=== PATIENT | male | born 1945 | race Caucasian/White ===

== ENCOUNTER 2019-09-13 11:41 | Inpatient (IN) ==
[~2019-09-13 11:41] MED LIST: *HR* Amiodarone Premix 360 MG/200 ML BAG IVC ONE; *HR* Norepinephrine 4 MG/4 ML VIAL IVC ONE; Aminoglycoside Consult 1 EACH MC ONE; D5% in Water 250 ML IV BAG IV ONE
[2019-09-13] MEDS: Norepinephrine 4 MG in 0.9 % Sodium Chloride 250 ML IVC SCH ×2 (11:50→17:00)
[2019-09-13 12:11] LABS: ABG Base Excess -9 mEq/L (-2 to 3); ABG HCO3 16 mEq/L (21-27); ABG Oxygen Saturation 100 % (95-98); ABG PCO2 32 mmHg (35-45); ABG PH 7.32 pH Units (7.32-7.45); ABG PO2 222 mmHg (85-104); ABG TCO2 17 mEq/L (20-26); Blood Gas Modality VC; Blood Gas VT 450 cc
[2019-09-13 12:52] LABS: INR 3.9
[2019-09-13 12:53] LABS: Hematocrit 30.7 % (37.5-50.1); Hemoglobin 10.1 g/dL (12.9-16.9); Mean Corpuscular HGB Conc 32.9 g/dL (31.6-35.5); Mean Corpuscular Hemoglobin 31.4 pg (28.0-33.3); Mean Corpuscular Volume 95.3 fL (83.0-100.0); Mean Platelet Volume 9.4 fL (9.4-12.4); Platelet Count 309 K/mcL (140-400); Red Blood Count 3.22 M/mcL (4.19-5.50); Red Cell Distribution Width 15.3 % (11.5-14.5); White Blood Count 24.9 K/mcL (4.3-11.1)
[2019-09-13 12:55] LABS: Activated Partial Thrombo Time 32.4 Seconds (26.0-36.0)
[2019-09-13 12:57] LABS: Prothrombin Time 44.4 Seconds (9.4-12.1)
[2019-09-13] MEDS ORDERED: Piperacillin/Tazobactam 3.375 GM in 0.9 % Sodium Chloride Mini Bag 100 ML IVP ONE (13:01)
[2019-09-13] MEDS ORDERED: levoFLOXacin 750 MG/150 ML 750 MG/150 ML BAG IVPB ONE (13:02)
[2019-09-13 13:09] LABS: Albumin 3.1 g/dL (3.5-5.7); Albumin/Globulin Ratio 1.2 (1.1-2.2); Bilirubin,Direct 0.4 mg/dL (0.0-0.2); Bilirubin,Indirect 0.6 mg/dL (0.0-1.0); Globulin 2.6 g/dL (2.4-3.5); Total Protein 5.7 g/dL (6.4-8.9)
[2019-09-13] MEDS ORDERED: Piperacillin/Tazobactam 3.375 GM in 0.9 % Sodium Chloride Mini Bag 100 ML IVPB ONE (13:15)
[2019-09-13 13:16] LABS: Calcium 8.7 mg/dL (8.6-10.3); Monocytes # 0.5 K/mcL (0.0-1.3); Neutrophils # 23.4 K/mcL (1.6-8.9); Potassium 4.7 mEq/L (3.5-5.1); Troponin I 0.03 ng/mL (< 0.04)
[2019-09-13 13:17] LABS: Platelet Estimate Normal (Normal); Polychromasia 1+ (Not Present)
[2019-09-13] MEDS ORDERED: Amiodarone Premix 360 MG/200 ML BAG IVC ONE (14:10)
[2019-09-13 14:54] LABS: Magnesium 2.4 mg/dL (1.6-2.6)
[2019-09-13] MEDS ORDERED: Acetaminophen 325 MG TABLET PO PRN (15:16)
[2019-09-13] MEDS ORDERED: Artificial Tears SOLN 15 ML BOTTLE BOTH EYES PRN (15:16)
[2019-09-13] MEDS ORDERED: Naloxone 0.4 MG/ML INJ IVP PRN (15:16)
[2019-09-13] MEDS ORDERED: D5% in Water 1,000 ML IVC PRN (15:30)
[2019-09-13] MEDS ORDERED: Dextrose Gel 15 GM/37.5 ML TUBE PO PRN ×2 (15:30)
[2019-09-13] MEDS ORDERED: Perflutren Lipid Microsphere 1.3 ML in 0.9 % Sodium Chloride 8.7 ML IVP ONE (17:03)
[2019-09-13] MEDS ORDERED: Perflutren Lipid Microsphere 2 ML VIAL ONE (17:14)
[2019-09-13] MEDS: Artificial Tears SOLN 15 ML BOTTLE BOTH EYES SCH ×2 (17:16→19:32)
[2019-09-13] MEDS: Insulin LISPRO 300 UNITS/3 ML VIAL SQ SCH (17:30)
[2019-09-13] MEDS: Amiodarone Premix 360 MG/200 ML BAG IVC SCH (17:36)
[2019-09-13 17:48] LABS: Estimated Average Glucose 180 mg/dl
[2019-09-13] MEDS ORDERED: Doxycycline 100 MG in 0.9 % Sodium Chloride Mini Bag 100 ML IVPB SCH (18:00)
[2019-09-13] MEDS: FentaNYL (PF) 1,000 MCG in 0.9 % Sodium Chloride 80 ML IVC SCH (18:01)
[2019-09-13] MEDS: 0.9 % Sodium Chloride 1,000 ML IVC SCH ×3 (18:14→20:33)
[2019-09-13 19:23] LABS: Bilirubin,Urine Negative (Negative); Blood,Urine Small (Negative); Clarity,Urine Turbid (Clear); Color,Urine Yellow (Yellow); Glucose,Urine (UA) 100 mg/dL (Normal); Ketones,Urine Negative (Negative); Leukocyte Esterase,Urine Negative (Negative); Nitrite,Urine Negative (Negative); Protein,Urine 30 mg/dL (Neg-Trace); Specific Gravity,Urine 1.021 (1.010-1.025); Urobilinogen,Urine Normal (Normal)
[2019-09-13 19:25] LABS: Bacteria,Urine None Seen per hpf (None-Few); RBC,Urine 0-3 per hpf (0-3); Squamous Epithelial Cell,Urine Many per lpf (None-Few); WBC,Urine 30-50 per hpf (0-3)
[2019-09-13] MEDS: Chlorhexidine Rinse 15 ML MOUTHWASH MM SCH (19:32)
[2019-09-13] MEDS: Insulin DETEMIR 100 UNIT/ML X5UNITS SQ SCH (19:32)
[2019-09-13 19:41] LABS: Uric Acid Crystals,Urine Present
[2019-09-13 19:42] LABS: Granular Casts,Urine Moderate per lpf (None Seen)
[2019-09-13] MEDS: Phenylephrine 10 MG in 0.9 % Sodium Chloride 250 ML IVC SCH (20:28)
[2019-09-13 21:25] LABS: Hemoglobin 9.1 g/dL (12.9-16.9)
[2019-09-13 22:19] LABS: INR 5.2; Prothrombin Time 58.8 Seconds (9.4-12.1)
[2019-09-14] MEDS: Artificial Tears SOLN 15 ML BOTTLE BOTH EYES SCH ×6 (00:09→20:43)
[2019-09-14] MEDS: Insulin LISPRO 300 UNITS/3 ML VIAL SQ SCH ×4 (00:10→20:40)
[2019-09-14] MEDS: Piperacillin/Tazobactam 3.375 GM in 0.9 % Sodium Chloride Mini Bag 100 ML IVPB SCH ×3 (00:13→16:21)
[2019-09-14] MEDS: Phenylephrine 10 MG in 0.9 % Sodium Chloride 250 ML IVC SCH ×2 (00:18→02:28)
[2019-09-14] MEDS: FentaNYL (PF) 1,000 MCG in 0.9 % Sodium Chloride 80 ML IVC SCH ×3 (02:27→23:15)
[2019-09-14 03:20] LABS: Adenovirus Not Detected (Not Detect); Bordetella Pertussis Not Detected (Not Detect); Chlamydophila pneumoniae Not Detected (Not Detect); Coronavirus 229E Not Detected (Not Detect); Coronavirus HKU1 Not Detected (Not Detect); Coronavirus NL63 Not Detected (Not Detect); Coronavirus OC43 Not Detected (Not Detect); Human Metapneumovirus Not Detected (Not Detect); Human Rhinovirus/Enterovirus Not Detected (Not Detect); Influenza A Subtype 2009 H1 Not Detected (Not Detect); Influenza A Untypeable Not Detected (Not Detect); Influenza B Not Detected (Not Detect); Mycoplasma pneumoniae Not Detected (Not Detect); Parainfluenza Virus 1 Not Detected (Not Detect); Parainfluenza Virus 2 Not Detected (Not Detect); Parainfluenza Virus 3 Not Detected (Not Detect); Parainfluenza Virus 4 Not Detected (Not Detect); Respiratory Syncytial Virus Not Detected (Not Detect)
[2019-09-14] MEDS: Phenylephrine 50 MG in 0.9 % Sodium Chloride 250 ML IVC SCH ×3 (04:07→20:40)
[2019-09-14 04:41] LABS: INR 4.2
[2019-09-14 04:47] LABS: ABG Base Excess -5 mEq/L (-2 to 3); ABG HCO3 21 mEq/L (21-27); ABG Oxygen Saturation 97 % (95-98); ABG PCO2 43 mmHg (35-45); ABG PO2 99 mmHg (85-104); ABG TCO2 22 mEq/L (20-26); Blood Gas Modality ASSIST CONTROL; Blood Gas VT 450 cc
[2019-09-14 04:49] LABS: Basophils % 0.2 %; Eosinophils % 0.4 %; Hematocrit 28.5 % (37.5-50.1); Hemoglobin 9.2 g/dL (12.9-16.9); Immature Granulocytes % 1.4 % (0-4); Lymphocytes # 0.9 K/mcL (0.6-4.6); Lymphocytes % 8.5 %; Mean Corpuscular HGB Conc 32.3 g/dL (31.6-35.5); Mean Corpuscular Hemoglobin 30.9 pg (28.0-33.3); Mean Corpuscular Volume 95.6 fL (83.0-100.0); Mean Platelet Volume 9.1 fL (9.4-12.4); Monocytes % 9.4 %; Neutrophils # 8.7 K/mcL (1.6-8.9); Platelet Count 310 K/mcL (140-400); Prothrombin Time 47.3 Seconds (9.4-12.1); Red Blood Count 2.98 M/mcL (4.19-5.50); Red Cell Distribution Width 15.5 % (11.5-14.5); Segmented Neutrophils % 80.1 %
[2019-09-14 04:53] LABS: White Blood Count 10.8 K/mcL (4.3-11.1)
[2019-09-14 05:03] LABS: Albumin 2.8 g/dL (3.5-5.7); Albumin/Globulin Ratio 1.1 (1.1-2.2); Bilirubin,Direct 0.3 mg/dL (0.0-0.2); Bilirubin,Indirect 0.5 mg/dL (0.0-1.0); Bilirubin,Total 0.8 mg/dL (0.3-1.0); Calcium 7.7 mg/dL (8.6-10.3); Globulin 2.5 g/dL (2.4-3.5); Magnesium 2.1 mg/dL (1.6-2.6); Phosphorous 4.6 mg/dL (2.7-4.5); Potassium 4.5 mEq/L (3.5-5.1); Total Protein 5.3 g/dL (6.4-8.9)
[2019-09-14] MEDS: Amiodarone Premix 360 MG/200 ML BAG IVC SCH ×2 (05:09→16:40)
[2019-09-14] MEDS: Doxycycline 100 MG in 0.9 % Sodium Chloride Mini Bag 100 ML IVPB SCH ×2 (05:24→16:26)
[2019-09-14] MEDS: Norepinephrine 4 MG in 0.9 % Sodium Chloride 250 ML IVC SCH ×2 (06:01→12:32)
[2019-09-14] MEDS: Pantoprazole 40 MG VIAL IVP SCH (08:44)
[2019-09-14] MEDS: Chlorhexidine Rinse 15 ML MOUTHWASH MM SCH ×2 (08:44→20:48)
[2019-09-14] MEDS ORDERED: Furosemide 20 MG/2 ML VIAL IVP SCH (09:00)
[2019-09-14] MEDS: Insulin DETEMIR 100 UNIT/ML X5UNITS SQ SCH ×2 (11:39→20:43)
[2019-09-14] MEDS: Aspirin 81 MG TAB.CHEW PO SCH (11:39)
[2019-09-14 16:17] LABS: Hematocrit 30.1 % (37.5-50.1)
[2019-09-14] MEDS: Norepinephrine 8 MG in 0.9 % Sodium Chloride 250 ML IVC SCH ×2 (16:37→23:15)
[2019-09-14] MEDS: *HR* Dextrose 50 % in Water (Syg) 50 ML SYRINGE IVP PRN (21:34)
[2019-09-14 22:20] LABS: Hematocrit 32.3 % (37.5-50.1); Hemoglobin 10.8 g/dL (12.9-16.9)
[2019-09-15] MEDS: Artificial Tears SOLN 15 ML BOTTLE BOTH EYES SCH ×6 (00:13→19:41)
[2019-09-15] MEDS: Insulin LISPRO 300 UNITS/3 ML VIAL SQ SCH ×4 (00:14→18:47)
[2019-09-15] MEDS: Piperacillin/Tazobactam 3.375 GM in 0.9 % Sodium Chloride Mini Bag 100 ML IVPB SCH ×3 (00:15→16:12)
[2019-09-15] MEDS ORDERED: Aminoglycoside Consult 1 EACH MC ONE (03:02)
[2019-09-15] MEDS: Phenylephrine 50 MG in 0.9 % Sodium Chloride 250 ML IVC SCH ×3 (03:27→20:30)
[2019-09-15] MEDS: Amiodarone Premix 360 MG/200 ML BAG IVC SCH ×2 (03:36→16:17)
[2019-09-15 04:24] LABS: ABG Base Excess -6 mEq/L (-2 to 3); ABG HCO3 20 mEq/L (21-27); ABG Oxygen Saturation 91 % (95-98); ABG PCO2 38 mmHg (35-45); ABG PH 7.32 pH Units (7.32-7.45); ABG PO2 66 mmHg (85-104); ABG TCO2 21 mEq/L (20-26); Blood Gas Modality ASSIST CONTROL; Blood Gas VT 500 cc
[2019-09-15 05:33] LABS: Basophils # 0.1 K/mcL (0.0-0.2); Basophils % 0.3 %; Eosinophils # 0.1 K/mcL (0.0-0.6); Eosinophils % 0.5 %; Hematocrit 32.2 % (37.5-50.1); Hemoglobin 10.7 g/dL (12.9-16.9); Immature Granulocytes % 0.8 % (0-4); Lymphocytes # 0.9 K/mcL (0.6-4.6); Lymphocytes % 5.5 %; Mean Corpuscular HGB Conc 33.2 g/dL (31.6-35.5); Mean Corpuscular Hemoglobin 31.5 pg (28.0-33.3); Mean Corpuscular Volume 94.7 fL (83.0-100.0); Mean Platelet Volume 8.9 fL (9.4-12.4); Monocytes # 1.1 K/mcL (0.0-1.3); Monocytes % 6.4 %; Neutrophils # 14.3 K/mcL (1.6-8.9); Platelet Count 315 K/mcL (140-400); Red Cell Distribution Width 15.9 % (11.5-14.5); Segmented Neutrophils % 86.5 %
[2019-09-15 05:41] LABS: White Blood Count 16.5 K/mcL (4.3-11.1)
[2019-09-15 05:52] LABS: Calcium 8.1 mg/dL (8.6-10.3); Potassium 4.3 mEq/L (3.5-5.1)
[2019-09-15] MEDS: *HR* Dextrose 50 % in Water (Syg) 50 ML SYRINGE IVP PRN (06:02)
[2019-09-15] MEDS: Norepinephrine 8 MG in 0.9 % Sodium Chloride 250 ML IVC SCH ×3 (06:02→19:29)
[2019-09-15] MEDS: Doxycycline 100 MG in 0.9 % Sodium Chloride Mini Bag 100 ML IVPB SCH ×2 (06:47→18:20)
[2019-09-15] MEDS: Insulin DETEMIR 100 UNIT/ML X5UNITS SQ SCH (08:11)
[2019-09-15] MEDS: Aspirin 81 MG TAB.CHEW PO SCH (08:15)
[2019-09-15] MEDS: Chlorhexidine Rinse 15 ML MOUTHWASH MM SCH ×2 (08:15→19:41)
[2019-09-15] MEDS: Pantoprazole 40 MG VIAL IVP SCH (08:15)
[2019-09-15 09:55] LABS: INR 2.3; Prothrombin Time 26.4 Seconds (9.4-12.1)
[2019-09-15 09:56] LABS: Hematocrit 31.9 % (37.5-50.1); Hemoglobin 10.4 g/dL (12.9-16.9)
[2019-09-15] MEDS: FentaNYL (PF) 1,000 MCG in 0.9 % Sodium Chloride 80 ML IVC SCH ×2 (10:03→19:28)
[2019-09-15] MEDS: *HR* Amiodarone 200 MG TABLET PO SCH ×2 (11:41→19:41)
[2019-09-16] MEDS: Piperacillin/Tazobactam 3.375 GM in 0.9 % Sodium Chloride Mini Bag 100 ML IVPB SCH ×3 (00:26→16:38)
[2019-09-16] MEDS: Artificial Tears SOLN 15 ML BOTTLE BOTH EYES SCH ×6 (00:27→20:31)
[2019-09-16] MEDS: Insulin LISPRO 300 UNITS/3 ML VIAL SQ SCH ×4 (00:27→18:47)
[2019-09-16] MEDS: Norepinephrine 8 MG in 0.9 % Sodium Chloride 250 ML IVC SCH ×2 (02:13→13:50)
[2019-09-16] MEDS: Amiodarone Premix 360 MG/200 ML BAG IVC SCH ×2 (03:46→16:00)
[2019-09-16 04:13] LABS: Basophils % 0.3 %; Eosinophils # 0.1 K/mcL (0.0-0.6); Eosinophils % 0.5 %; Hematocrit 31.1 % (37.5-50.1); Immature Granulocytes % 0.7 % (0-4); Lymphocytes # 0.8 K/mcL (0.6-4.6); Lymphocytes % 5.5 %; Mean Corpuscular HGB Conc 32.2 g/dL (31.6-35.5); Mean Corpuscular Hemoglobin 31.1 pg (28.0-33.3); Mean Corpuscular Volume 96.6 fL (83.0-100.0); Mean Platelet Volume 8.8 fL (9.4-12.4); Monocytes # 0.8 K/mcL (0.0-1.3); Monocytes % 5.5 %; Neutrophils # 12.3 K/mcL (1.6-8.9); Platelet Count 257 K/mcL (140-400); Red Blood Count 3.22 M/mcL (4.19-5.50); Red Cell Distribution Width 16.4 % (11.5-14.5); Segmented Neutrophils % 87.5 %; White Blood Count 14.1 K/mcL (4.3-11.1)
[2019-09-16 04:30] LABS: Calcium 7.9 mg/dL (8.6-10.3); Potassium 4.4 mEq/L (3.5-5.1)
[2019-09-16] MEDS: Doxycycline 100 MG in 0.9 % Sodium Chloride Mini Bag 100 ML IVPB SCH ×2 (05:13→16:39)
[2019-09-16] MEDS: FentaNYL (PF) 1,000 MCG in 0.9 % Sodium Chloride 80 ML IVC SCH ×2 (05:14→16:15)
[2019-09-16] MEDS: Phenylephrine 50 MG in 0.9 % Sodium Chloride 250 ML IVC SCH ×2 (05:59→20:30)
[2019-09-16 06:16] LABS: ABG Base Excess -8 mEq/L (-2 to 3); ABG HCO3 18 mEq/L (21-27); ABG Oxygen Saturation 85 % (95-98); ABG PCO2 36 mmHg (35-45); ABG PO2 55 mmHg (85-104); ABG TCO2 19 mEq/L (20-26); Blood Gas Modality ASSIST CONTROL; Blood Gas VT 500 cc
[2019-09-16] MEDS: Chlorhexidine Rinse 15 ML MOUTHWASH MM SCH ×2 (09:27→20:33)
[2019-09-16] MEDS: *HR* Amiodarone 200 MG TABLET PO SCH ×2 (09:27→20:33)
[2019-09-16] MEDS: Pantoprazole 40 MG VIAL IVP SCH (09:27)
[2019-09-16] MEDS: Aspirin 81 MG TAB.CHEW PO SCH (09:27)
[2019-09-16 10:23] LABS: INR 2.7; Prothrombin Time 30.9 Seconds (9.4-12.1)
[2019-09-17] MEDS: Insulin LISPRO 300 UNITS/3 ML VIAL SQ SCH ×4 (01:08→17:48)
[2019-09-17] MEDS: Piperacillin/Tazobactam 3.375 GM in 0.9 % Sodium Chloride Mini Bag 100 ML IVPB SCH ×3 (01:08→16:00)
[2019-09-17] MEDS: Artificial Tears SOLN 15 ML BOTTLE BOTH EYES SCH ×6 (01:09→20:08)
[2019-09-17] MEDS: Norepinephrine 8 MG in 0.9 % Sodium Chloride 250 ML IVC SCH ×2 (01:10→11:20)
[2019-09-17] MEDS: FentaNYL (PF) 1,000 MCG in 0.9 % Sodium Chloride 80 ML IVC SCH ×2 (02:11→20:16)
[2019-09-17 04:46] LABS: ABG Base Excess -5 mEq/L (-2 to 3); ABG HCO3 20 mEq/L (21-27); ABG Oxygen Saturation 98 % (95-98); ABG PCO2 37 mmHg (35-45); ABG PH 7.34 pH Units (7.32-7.45); ABG PO2 119 mmHg (85-104); ABG TCO2 21 mEq/L (20-26); Blood Gas Modality ASSIST CONTROL; Blood Gas VT 500 cc
[2019-09-17] MEDS: Doxycycline 100 MG in 0.9 % Sodium Chloride Mini Bag 100 ML IVPB SCH ×2 (04:56→17:45)
[2019-09-17] MEDS: Amiodarone Premix 360 MG/200 ML BAG IVC SCH (04:56)
[2019-09-17 04:59] LABS: Basophils % 0.2 %; Eosinophils # 0.1 K/mcL (0.0-0.6); Eosinophils % 0.6 %; Hematocrit 31.2 % (37.5-50.1); Immature Granulocytes % 0.9 % (0-4); Lymphocytes # 0.7 K/mcL (0.6-4.6); Lymphocytes % 5.5 %; Mean Corpuscular HGB Conc 32.1 g/dL (31.6-35.5); Mean Corpuscular Hemoglobin 30.7 pg (28.0-33.3); Mean Corpuscular Volume 95.7 fL (83.0-100.0); Mean Platelet Volume 8.5 fL (9.4-12.4); Monocytes # 0.7 K/mcL (0.0-1.3); Monocytes % 5.2 %; Neutrophils # 10.9 K/mcL (1.6-8.9); Platelet Count 237 K/mcL (140-400); Red Blood Count 3.26 M/mcL (4.19-5.50); Red Cell Distribution Width 16.6 % (11.5-14.5); Segmented Neutrophils % 87.6 %; White Blood Count 12.5 K/mcL (4.3-11.1)
[2019-09-17 05:03] LABS: INR 2.9; Prothrombin Time 32.5 Seconds (9.4-12.1)
[2019-09-17 05:18] LABS: Calcium 8.1 mg/dL (8.6-10.3); Potassium 4.3 mEq/L (3.5-5.1)
[2019-09-17] MEDS: Aspirin 81 MG TAB.CHEW PO SCH (08:12)
[2019-09-17] MEDS: *HR* Amiodarone 200 MG TABLET PO SCH ×2 (08:12→20:08)
[2019-09-17] MEDS: Pantoprazole 40 MG VIAL IVP SCH (08:12)
[2019-09-17] MEDS: Chlorhexidine Rinse 15 ML MOUTHWASH MM SCH ×2 (08:12→20:08)
[2019-09-18] MEDS ORDERED: Piperacillin/Tazobactam 3.375 GM in 0.9 % Sodium Chloride Mini Bag 100 ML IVPB SCH
[2019-09-18] MEDS: Insulin LISPRO 300 UNITS/3 ML VIAL SQ SCH ×4 (00:16→18:17)
[2019-09-18] MEDS: Artificial Tears SOLN 15 ML BOTTLE BOTH EYES SCH ×6 (00:17→20:05)
[2019-09-18] MEDS: Piperacillin/Tazobactam 3.375 GM in 0.9 % Sodium Chloride Mini Bag 100 ML IVPB SCH ×3 (00:17→20:04)
[2019-09-18 04:16] LABS: Basophils % 0.2 %; Eosinophils # 0.1 K/mcL (0.0-0.6); Eosinophils % 0.5 %; Hematocrit 28.4 % (37.5-50.1); Hemoglobin 9.2 g/dL (12.9-16.9); Immature Granulocytes % 0.5 % (0-4); Lymphocytes # 0.5 K/mcL (0.6-4.6); Lymphocytes % 5.4 %; Mean Corpuscular HGB Conc 32.4 g/dL (31.6-35.5); Mean Corpuscular Hemoglobin 31.2 pg (28.0-33.3); Mean Corpuscular Volume 96.3 fL (83.0-100.0); Mean Platelet Volume 8.4 fL (9.4-12.4); Monocytes # 0.4 K/mcL (0.0-1.3); Neutrophils # 8.4 K/mcL (1.6-8.9); Platelet Count 178 K/mcL (140-400); Red Blood Count 2.95 M/mcL (4.19-5.50); Red Cell Distribution Width 16.4 % (11.5-14.5); Segmented Neutrophils % 89.4 %; White Blood Count 9.4 K/mcL (4.3-11.1)
[2019-09-18 04:28] LABS: Calcium 8.1 mg/dL (8.6-10.3)
[2019-09-18 04:43] LABS: Thyroid Stimulating Hormone 3.019 mcIU/mL (0.340-5.600)
[2019-09-18] MEDS: Doxycycline 100 MG in 0.9 % Sodium Chloride Mini Bag 100 ML IVPB SCH ×2 (05:19→18:08)
[2019-09-18 05:21] LABS: ABG Base Excess -5 mEq/L (-2 to 3); ABG HCO3 19 mEq/L (21-27); ABG Oxygen Saturation 97 % (95-98); ABG PCO2 32 mmHg (35-45); ABG PH 7.39 pH Units (7.32-7.45); ABG PO2 91 mmHg (85-104); ABG TCO2 20 mEq/L (20-26); Blood Gas Modality ASSIST CONTROL; Blood Gas VT 500 cc
[2019-09-18] MEDS: *HR* Amiodarone 200 MG TABLET PO SCH ×2 (09:00→20:05)
[2019-09-18] MEDS: Aspirin 81 MG TAB.CHEW PO SCH (09:00)
[2019-09-18] MEDS: Chlorhexidine Rinse 15 ML MOUTHWASH MM SCH ×2 (09:00→20:04)
[2019-09-18 09:03] LABS: INR 3.1; Prothrombin Time 35.5 Seconds (9.4-12.1)
[2019-09-18] MEDS: Pantoprazole 40 MG VIAL IVP SCH (11:58)
[2019-09-18] MEDS ORDERED: *HR* Phytonadione 10 MG/ML AMPUL SQ ONE (12:00)
[2019-09-18 19:31] LABS: INR 3.3; Prothrombin Time 37.1 Seconds (9.4-12.1)
[2019-09-19] MEDS: Artificial Tears SOLN 15 ML BOTTLE BOTH EYES SCH ×6 (00:01→20:14)
[2019-09-19] MEDS: Insulin LISPRO 300 UNITS/3 ML VIAL SQ SCH ×4 (00:02→17:48)
[2019-09-19] MEDS: Phenylephrine 50 MG in 0.9 % Sodium Chloride 250 ML IVC SCH (00:50)
[2019-09-19 03:30] LABS: Basophils % 0.1 %; Eosinophils % 0.2 %; Hematocrit 29.3 % (37.5-50.1); Hemoglobin 9.5 g/dL (12.9-16.9); Immature Granulocytes % 0.4 % (0-4); Immature Platelets 0.6 % (1.1-6.1); Lymphocytes # 0.5 K/mcL (0.6-4.6); Lymphocytes % 5.1 %; Mean Corpuscular HGB Conc 32.4 g/dL (31.6-35.5); Mean Corpuscular Hemoglobin 30.9 pg (28.0-33.3); Mean Corpuscular Volume 95.4 fL (83.0-100.0); Mean Platelet Volume 8.3 fL (9.4-12.4); Monocytes # 0.5 K/mcL (0.0-1.3); Monocytes % 4.9 %; Neutrophils # 8.3 K/mcL (1.6-8.9); Platelet Count 175 K/mcL (140-400); Red Blood Count 3.07 M/mcL (4.19-5.50); Red Cell Distribution Width 16.1 % (11.5-14.5); Segmented Neutrophils % 89.3 %; White Blood Count 9.3 K/mcL (4.3-11.1)
[2019-09-19 03:36] LABS: INR 2.8; Prothrombin Time 31.7 Seconds (9.4-12.1)
[2019-09-19 03:52] LABS: Calcium 8.3 mg/dL (8.6-10.3); Potassium 4.1 mEq/L (3.5-5.1)
[2019-09-19] MEDS: Piperacillin/Tazobactam 3.375 GM in 0.9 % Sodium Chloride Mini Bag 100 ML IVPB SCH (04:32)
[2019-09-19] MEDS: Doxycycline 100 MG in 0.9 % Sodium Chloride Mini Bag 100 ML IVPB SCH ×2 (06:39→17:47)
[2019-09-19] MEDS: Pantoprazole 40 MG VIAL IVP SCH (10:07)
[2019-09-19] MEDS: Aspirin 81 MG TAB.CHEW PO SCH (10:07)
[2019-09-19] MEDS: *HR* Amiodarone 200 MG TABLET PO SCH (10:07)
[2019-09-19] MEDS: Chlorhexidine Rinse 15 ML MOUTHWASH MM SCH ×2 (10:07→20:14)
[2019-09-19] MEDS ORDERED: *HR* Amiodarone 200 MG TABLET PO SCH (13:04)
[2019-09-19] MEDS ORDERED: E-Z-HD (BARIUM SULF) SUSPENSION PO ONE (15:57)
[2019-09-19] MEDS ORDERED: E-Z-PAQUE (BARIUM SULF) SUSP 1 BOTTLE PO ONE (15:57)
[2019-09-20] MEDS: Insulin LISPRO 300 UNITS/3 ML VIAL SQ SCH ×4 (00:22→17:07)
[2019-09-20] MEDS: Artificial Tears SOLN 15 ML BOTTLE BOTH EYES SCH ×3 (00:22→08:18)
[2019-09-20] MEDS: Phenylephrine 50 MG in 0.9 % Sodium Chloride 250 ML IVC SCH (02:33)
[2019-09-20 04:32] LABS: Basophils % 0.1 %; Eosinophils # 0.1 K/mcL (0.0-0.6); Eosinophils % 0.7 %; Hemoglobin 8.8 g/dL (12.9-16.9); Immature Granulocytes % 0.4 % (0-4); Lymphocytes # 0.6 K/mcL (0.6-4.6); Lymphocytes % 6.1 %; Mean Corpuscular HGB Conc 30.3 g/dL (31.6-35.5); Mean Platelet Volume 8.9 fL (9.4-12.4); Monocytes # 0.5 K/mcL (0.0-1.3); Monocytes % 5.7 %; Platelet Count 150 K/mcL (140-400); Red Blood Count 2.93 M/mcL (4.19-5.50); Red Cell Distribution Width 16.3 % (11.5-14.5); White Blood Count 9.2 K/mcL (4.3-11.1)
[2019-09-20 04:50] LABS: Calcium 8.5 mg/dL (8.6-10.3); Potassium 3.9 mEq/L (3.5-5.1)
[2019-09-20] MEDS: Doxycycline 100 MG in 0.9 % Sodium Chloride Mini Bag 100 ML IVPB SCH (06:13)
[2019-09-20] MEDS: Chlorhexidine Rinse 15 ML MOUTHWASH MM SCH ×2 (08:18→20:24)
[2019-09-20] MEDS: Aspirin 81 MG TAB.CHEW PO SCH (08:18)
[2019-09-20] MEDS: Pantoprazole 40 MG VIAL IVP SCH (08:18)
[2019-09-20] MEDS ORDERED: *HR* Amiodarone 200 MG TABLET PO SCH (09:00)
[2019-09-20] MEDS ORDERED: Dextrose Gel 15 GM/37.5 ML TUBE PO PRN ×2 (09:23)
[2019-09-20] MEDS ORDERED: D5% in Water 1,000 ML IVC PRN (09:23)
[2019-09-20] MEDS ORDERED: Acetaminophen 325 MG TABLET PO PRN (09:23)
[2019-09-20] MEDS ORDERED: Naloxone 0.4 MG/ML INJ IVP PRN (09:23)
[2019-09-20] MEDS ORDERED: *HR* Dextrose 50 % in Water (Syg) 50 ML SYRINGE IVP PRN (09:23)
[2019-09-20 09:35] LABS: INR 2.1; Prothrombin Time 24.3 Seconds (9.4-12.1)
[2019-09-21] MEDS: Insulin LISPRO 300 UNITS/3 ML VIAL SQ SCH ×5 (00:58→23:58)
[2019-09-21 01:58] LABS: Basophils % 0.1 %; Eosinophils % 0.1 %; Hematocrit 29.2 % (37.5-50.1); Immature Granulocytes % 0.3 % (0-4); Lymphocytes # 0.6 K/mcL (0.6-4.6); Lymphocytes % 6.1 %; Mean Corpuscular HGB Conc 30.8 g/dL (31.6-35.5); Mean Corpuscular Hemoglobin 30.8 pg (28.0-33.3); Mean Platelet Volume 8.9 fL (9.4-12.4); Monocytes # 0.5 K/mcL (0.0-1.3); Monocytes % 5.2 %; Platelet Count 152 K/mcL (140-400); Red Blood Count 2.92 M/mcL (4.19-5.50); Red Cell Distribution Width 16.3 % (11.5-14.5); Segmented Neutrophils % 88.2 %; White Blood Count 10.2 K/mcL (4.3-11.1)
[2019-09-21 02:13] LABS: INR 2.1
[2019-09-21 02:17] LABS: Calcium 8.7 mg/dL (8.6-10.3)
[2019-09-21] MEDS: *HR* Amiodarone 200 MG TABLET PO SCH (08:09)
[2019-09-21] MEDS: Aspirin 81 MG TAB.CHEW PO SCH (08:09)
[2019-09-21] MEDS: Chlorhexidine Rinse 15 ML MOUTHWASH MM SCH ×2 (08:10→20:45)
[2019-09-22 00:58] LABS: Basophils % 0.1 %; Hemoglobin 9.8 g/dL (12.9-16.9); Immature Granulocytes % 0.5 % (0-4); Lymphocytes # 0.5 K/mcL (0.6-4.6); Lymphocytes % 3.6 %; Mean Corpuscular HGB Conc 31.6 g/dL (31.6-35.5); Mean Corpuscular Hemoglobin 30.5 pg (28.0-33.3); Mean Corpuscular Volume 96.6 fL (83.0-100.0); Mean Platelet Volume 9.5 fL (9.4-12.4); Monocytes # 0.6 K/mcL (0.0-1.3); Monocytes % 4.7 %; Neutrophils # 11.9 K/mcL (1.6-8.9); Platelet Count 168 K/mcL (140-400); Red Blood Count 3.21 M/mcL (4.19-5.50); Red Cell Distribution Width 16.6 % (11.5-14.5); Segmented Neutrophils % 91.1 %; White Blood Count 13.1 K/mcL (4.3-11.1)
[2019-09-22 01:20] LABS: Potassium 4.3 mEq/L (3.5-5.1)
[2019-09-22] MEDS: Insulin LISPRO 300 UNITS/3 ML VIAL SQ SCH ×4 (05:19→20:22)
[2019-09-22 05:48] LABS: INR 2.2; Prothrombin Time 24.7 Seconds (9.4-12.1)
[2019-09-22] MEDS: Chlorhexidine Rinse 15 ML MOUTHWASH MM SCH ×2 (11:01→19:57)
[2019-09-22] MEDS: Aspirin 81 MG TAB.CHEW PO SCH (11:01)
[2019-09-22] MEDS: *HR* Amiodarone 200 MG TABLET PO SCH (11:01)
[2019-09-22 11:02] LABS: ABG Base Excess -3 mEq/L (-2 to 3); ABG HCO3 20 mEq/L (21-27); ABG Oxygen Saturation 99 % (95-98); ABG PCO2 30 mmHg (35-45); ABG PH 7.44 pH Units (7.32-7.45); ABG PO2 127 mmHg (85-104); ABG TCO2 21 mEq/L (20-26)
[2019-09-22] MEDS ORDERED: Albumin 25% 25gram/100mL 25 GM/100 ML IV.SOLN IVPB ONE (11:33)
[2019-09-22] MEDS ORDERED: Furosemide 20 MG/2 ML VIAL IVP ONE (11:33)
[2019-09-22 11:44] LABS: Albumin 2.5 g/dL (3.5-5.7); Albumin/Globulin Ratio 0.9 (1.1-2.2); Bilirubin,Direct 0.5 mg/dL (0.0-0.2); Bilirubin,Indirect 0.6 mg/dL (0.0-1.0); Bilirubin,Total 1.1 mg/dL (0.3-1.0); Globulin 2.7 g/dL (2.4-3.5); Total Protein 5.2 g/dL (6.4-8.9); Troponin I 0.07 ng/mL (< 0.04)
[2019-09-22 12:50] LABS: Adenovirus Not Detected (Not Detect); Bordetella Pertussis Not Detected (Not Detect); Chlamydophila pneumoniae Not Detected (Not Detect); Coronavirus 229E Not Detected (Not Detect); Coronavirus HKU1 Not Detected (Not Detect); Coronavirus NL63 Not Detected (Not Detect); Coronavirus OC43 Not Detected (Not Detect); Human Metapneumovirus Not Detected (Not Detect); Human Rhinovirus/Enterovirus Not Detected (Not Detect); Influenza A Subtype 2009 H1 Not Detected (Not Detect); Influenza A Untypeable Not Detected (Not Detect); Influenza B Not Detected (Not Detect); Mycoplasma pneumoniae Not Detected (Not Detect); Parainfluenza Virus 1 Not Detected (Not Detect); Parainfluenza Virus 2 Not Detected (Not Detect); Parainfluenza Virus 3 Not Detected (Not Detect); Parainfluenza Virus 4 Not Detected (Not Detect); Respiratory Syncytial Virus Not Detected (Not Detect)
[2019-09-22 13:01] LABS: Bilirubin,Urine Negative (Negative); Blood,Urine Large (Negative); Clarity,Urine Turbid (Clear); Glucose,Urine (UA) Normal (Normal); Ketones,Urine Negative (Negative); Leukocyte Esterase,Urine Small (Negative); Nitrite,Urine Negative (Negative); PH,Urine 5.5 pH Units (5.0-8.0); Protein,Urine 100 mg/dL (Neg-Trace); Specific Gravity,Urine 1.019 (1.010-1.025); Urobilinogen,Urine Normal (Normal)
[2019-09-22 13:03] LABS: Bacteria,Urine None Seen per hpf (None-Few); Hyaline Casts,Urine Few per lpf (None-Few); RBC,Urine TNTC per hpf (0-3); Squamous Epithelial Cell,Urine Moderate per lpf (None-Few)
[2019-09-22 13:06] LABS: Color,Urine Amber (Yellow)
[2019-09-22] MEDS: Piperacillin/Tazobactam 3.375 GM in 0.9 % Sodium Chloride Mini Bag 100 ML IVPB SCH ×2 (15:18→22:23)
[2019-09-23 05:33] LABS: Basophils % 0.1 %; Hematocrit 29.7 % (37.5-50.1); Immature Granulocytes % 0.8 % (0-4); Lymphocytes # 0.4 K/mcL (0.6-4.6); Lymphocytes % 3.2 %; Mean Corpuscular HGB Conc 30.3 g/dL (31.6-35.5); Mean Corpuscular Hemoglobin 30.6 pg (28.0-33.3); Mean Platelet Volume 9.6 fL (9.4-12.4); Monocytes # 0.4 K/mcL (0.0-1.3); Monocytes % 3.3 %; Neutrophils # 12.3 K/mcL (1.6-8.9); Platelet Count 128 K/mcL (140-400); Red Blood Count 2.94 M/mcL (4.19-5.50); Red Cell Distribution Width 16.6 % (11.5-14.5); Segmented Neutrophils % 92.6 %; White Blood Count 13.3 K/mcL (4.3-11.1)
[2019-09-23 05:54] LABS: Albumin 2.8 g/dL (3.5-5.7); Albumin/Globulin Ratio 1.1 (1.1-2.2); Bilirubin,Total 1.2 mg/dL (0.3-1.0); Calcium 8.9 mg/dL (8.6-10.3); Globulin 2.5 g/dL (2.4-3.5); Potassium 3.8 mEq/L (3.5-5.1); Total Protein 5.3 g/dL (6.4-8.9)
[2019-09-23] MEDS: Piperacillin/Tazobactam 3.375 GM in 0.9 % Sodium Chloride Mini Bag 100 ML IVPB SCH (06:27)
[2019-09-23] MEDS: *HR* Amiodarone 200 MG TABLET PO SCH (08:57)
[2019-09-23] MEDS: Aspirin 81 MG TAB.CHEW PO SCH (08:57)
[2019-09-23] MEDS: Insulin LISPRO 300 UNITS/3 ML VIAL SQ SCH ×4 (09:01→21:04)
[2019-09-23] MEDS: Chlorhexidine Rinse 15 ML MOUTHWASH MM SCH ×2 (09:15→20:40)
[2019-09-23] MEDS ORDERED: Vancomycin 1,500 MG in D5% in Water 250 ML IVPB SCH (13:30)
[2019-09-23] MEDS: Piperacillin/Tazobactam 3.375 GM in D5% in Water (Mini-Bag+) 100 ML IVPB SCH ×2 (14:04→20:41)
[2019-09-24] MEDS ORDERED: Aminoglycoside Consult 1 EACH MC ONE (03:02)
[2019-09-24 04:34] LABS: Hematocrit 29.2 % (37.5-50.1); Hemoglobin 8.6 g/dL (12.9-16.9); Immature Granulocytes % 0.5 % (0-4); Lymphocytes # 0.4 K/mcL (0.6-4.6); Lymphocytes % 4.3 %; Mean Corpuscular HGB Conc 29.5 g/dL (31.6-35.5); Mean Corpuscular Hemoglobin 30.4 pg (28.0-33.3); Mean Corpuscular Volume 103.2 fL (83.0-100.0); Mean Platelet Volume 9.8 fL (9.4-12.4); Monocytes # 0.3 K/mcL (0.0-1.3); Monocytes % 3.5 %; Neutrophils # 8.4 K/mcL (1.6-8.9); Platelet Count 117 K/mcL (140-400); Red Blood Count 2.83 M/mcL (4.19-5.50); Red Cell Distribution Width 16.5 % (11.5-14.5); Segmented Neutrophils % 91.7 %; White Blood Count 9.2 K/mcL (4.3-11.1)
[2019-09-24 04:37] LABS: INR 3.7; Prothrombin Time 41.9 Seconds (9.4-12.1)
[2019-09-24 04:56] LABS: Potassium 3.5 mEq/L (3.5-5.1)
[2019-09-24] MEDS: Piperacillin/Tazobactam 3.375 GM in D5% in Water (Mini-Bag+) 100 ML IVPB SCH ×3 (06:02→20:55)
[2019-09-24] MEDS: *HR* Amiodarone 200 MG TABLET PO SCH (08:49)
[2019-09-24] MEDS: Insulin LISPRO 300 UNITS/3 ML VIAL SQ SCH ×4 (08:50→20:58)
[2019-09-24] MEDS: Aspirin 81 MG TAB.CHEW PO SCH (08:50)
[2019-09-24] MEDS: Chlorhexidine Rinse 15 ML MOUTHWASH MM SCH ×2 (08:51→20:55)
[2019-09-24 09:46] LABS: Albumin 2.6 g/dL (3.5-5.7); Bilirubin,Direct 0.5 mg/dL (0.0-0.2); Bilirubin,Indirect 0.7 mg/dL (0.0-1.0); Bilirubin,Total 1.2 mg/dL (0.3-1.0); Globulin 2.5 g/dL (2.4-3.5); Total Protein 5.1 g/dL (6.4-8.9)
[2019-09-24] MEDS ORDERED: D5% in Water 1,000 ML IVC SCH (21:00)
[2019-09-24 22:00] LABS: ABG Base Excess -4 mEq/L (-2 to 3); ABG HCO3 23 mEq/L (21-27); ABG Oxygen Saturation 89 % (95-98); ABG PCO2 51 mmHg (35-45); ABG PH 7.27 pH Units (7.32-7.45); ABG PO2 64 mmHg (85-104); ABG TCO2 25 mEq/L (20-26)
[2019-09-24 22:56] LABS: Calcium 8.9 mg/dL (8.6-10.3); Potassium 4.1 mEq/L (3.5-5.1)
[2019-09-24] MEDS: Albumin 25% 25gram/100mL 25 GM/100 ML IV.SOLN IVC SCH (23:23)
[2019-09-24 23:53] LABS: ABG Base Excess -4 mEq/L (-2 to 3); ABG HCO3 23 mEq/L (21-27); ABG Oxygen Saturation 96 % (95-98); ABG PCO2 46 mmHg (35-45); ABG PH 7.31 pH Units (7.32-7.45); ABG PO2 93 mmHg (85-104); ABG TCO2 24 mEq/L (20-26); Blood Gas Modality NIV
[2019-09-25 00:35] LABS: Troponin I 0.07 ng/mL (< 0.04)
[2019-09-25] MEDS: Albumin 25% 25gram/100mL 25 GM/100 ML IV.SOLN IVC SCH (00:59)
[2019-09-25] MEDS ORDERED: Morphine Sulfate 2 MG/ML SYRINGE IVP ONE ×2 (01:55→02:07)
[2019-09-25 02:16] VITALS: BP 64/47
[2019-09-25] MEDS ORDERED: Norepinephrine 4 MG in 0.9 % Sodium Chloride 250 ML IVC SCH (03:00)
[2019-09-25] MEDS ORDERED: *HR* EPINEPHrine 1 MG/10 ML SYRINGE IVP ONE (03:02)
[2019-09-25] MEDS ORDERED: *HR* Etomidate 20 MG/10 ML AMPUL IVP ONE (03:02)
[2019-09-25] MEDS ORDERED: *HR* Amiodarone 150 MG/3 ML VIAL IVPB ONE (03:02)
[2019-09-25] MEDS ORDERED: *HR* Midazolam HCl 5 MG/5 ML VIAL IVP ONE (03:02)
[2019-09-25] MEDS ORDERED: *HR* Norepinephrine 4 MG/4 ML VIAL IVC ONE (03:02)
[2019-09-25] MEDS ORDERED: *HR* Amiodarone Premix 360 MG/200 ML BAG IVC ONE (03:02)
[2019-09-25] MEDS ORDERED: *HR* Magnesium Sulfate 2 GM/50 ML PIGGYBACK IVPB ONE (03:02)
[2019-09-25] MEDS ORDERED: D5% in Water 250 ML IV BAG IV ONE (03:02)
== END 2019-09-25 03:03 | disposition expired | DRG 870 ==
LOC: EMEROOARM 11:41 → SUATTDRO 15:14 → ICNU 15:14 → 2NNU 09-20 13:54 → ICNU 09-24 22:38
PROVIDERS: ADMIT Pediatrics; ATTEND Student in an Organized Health Care Education/Training Program